=== PATIENT | male | born 1960 | race Caucasian/White ===

== ENCOUNTER → 2018-01-02 | Outpatient (CLI) | payer OTHER, BC ==
--- NOTE | 2018-01-02 13:51 | EXE ---
[place] [address] STRESS ECHOCARDIOGRAM Name: MARCYPENNY Ashley Room: [facility]#: [id number] Admission: 01/02/18 Attend Phys: Eric Muir, Discharge: Date of : 58 Date of Service: 01/02/18 1351 Report #: [id number] THIS REPORT FOR: //name// APPROVED REPORT Exam: Stress Echocardiogram Indication: Abnormal EKG Patient Location: Out-Patient Stress Nurse: Whit Dickerson RN Supervising Physician: Bernardo Chavira MD Status: routine Ht: 5 ft 8 in HR: 64 bpm BP: 143/93 mmHg Medical History Cardiac Risk Factors: FHX of CAD, Hyperlipidemia Procedure The patient underwent an Exercise Stress Test using the Dhruv Protocol. Blood pressure, heart rate, and EKG were monitored. An Echocardiogram was performed by radio/tv technician in four stages in quad fashion. At peak stress, four selected images were obtained and placed side by side with resting images for comparison. Stress Test Details Stress Test: Exercise stress testing was performed using a Dhruv protocol. HR Resting HR: 64 bpm Max Heart Rate (APMHR): 162 bpm Max HR Achieved: 164 bpm Target HR (85% APMHR): 137 bpm % of APMHR: 101 Recovery HR: 90 bpm HR response to stress: Normal HR response to stress BP Resting BP: 143/93 mmHg Max BP: 195/98 mmHg Recovery BP: 143/92 mmHg ECG Clinical Reason for Termination: Completed protocol, Maximal effort Exercise duration: 10 min 29 [place] [address] STRESS ECHOCARDIOGRAM Name: PENNY VIDAL Room: [facility]#: [id number] Admission: 01/02/18 Attend Phys: Eric Muir, Discharge: Date of : 58 Date of Service: 01/02/18 1351 Report #: [id number] Highest Stage Achieved: Stage 4: 4.2 mph at 16% grade. Exercise capacity: 12.58 METs Pre-Stress Echo The resting Echocardiogram showed normal left ventricular contractility with an estimated Ejection Fraction of about 55-60%. Normal wall motion in all segments on baseline images. Post-Stress Echo The stress Echocardiogram showed normal left ventricular contractility with an estimated Ejection Fraction of about >70%. Normal augmentation of wall motion in all segments on post stress images. Clinical Normal augmentation of myocardial wall segments using a 17 segment model. No clinical or ECG evidence for ischemia. Conclusion Clinical Response: Non-ischemic Exercise Capacity: Superior Stress ECG Response: Non-ischemic Stress Echo Images: Non-ischemic The left ventricle is normal in size and wall thickness in both the rest and stress images. Other Information Study Quality: Good <Conclusion> The left ventricle is normal in size and wall thickness in both the rest and stress images. <ELECTRONICALLY SIGNED> By: Bernardo Chavira MD, FACC 01/02/18 1351 135 135 Bernardo Chavira MD, FACC /INF
== END ==
LOC: M.CRD 10:52
DX: R94.31 Abnormal electrocardiogram [ECG] [EKG] (principal)

== ENCOUNTER → 2020-06-03 | Outpatient (CLI) | payer OTHER ==
--- NOTE | 2020-06-03 16:13 | CARDNUC ---
[place] [address] CARDIAC NUCLEAR IMAGING REPORT Name: MARCYPENNY Ashley Room: [facility]#: [id number] Admission: 06/03/20 Attend Phys: Eric Muir, Discharge: Date of : 58 Date of Service: 06/03/20 1612 Report #: [id number] THIS REPORT FOR: cc: FAM - No family physician/PCP FAM - No family physician/PCP Eric Muir MD [facility] ~ APPROVED REPORT Study performed: 06/03/2020 14:42:45 Exam: Nuclear Stress Test Indication: Chest pain, ABN EKG, increased calcium score. Patient Location: Out-Patient Stress Tech: Nikole Lange Stress Nurse: Radha Layton R.N. Ht: 5 ft 7 in Wt: 185 lbs BSA: 1.96 m2 BMI: 28.97 Medical History Medical History: Angina, ABN EKG, increased calcium score, RBBB, polyneuropathy, CAD non obstructive, Hyperlipidemia, family HX of CAD. Medications: ASA 81 Mg, Atorvastatin. Allergies: No known drug allergies Cardiac Risk Factors: Age, FHX of CAD, Hyperlipidemia, HTN, RBBB, increased calcium score. Previous Cardiac Procedures: None Pretest Chest Pain Characteristics: No chest pain Exercise History: Physically active Physical Disabilities: None Meds Held (24 hrs): None Stress Test Details Stress Test: Exercise stress testing was performed using a Dhruv protocol. HR Resting HR: 62 bpm Max Heart Rate (APMHR): 159 bpm Max HR Achieved: 164 bpm Target HR (85% APMHR): 135 bpm % of APMHR: 103 Recovery HR: 95 bpm BP Resting BP: 136/103 [place] [address] CARDIAC NUCLEAR IMAGING REPORT Name: MARCYPENNY Ashley Room: [facility]#: [id number] Admission: 06/03/20 Attend Phys: Eric Muir, Discharge: Date of : 58 Date of Service: 06/03/20 1612 Report #: [id number] Max BP: 204/96 mmHg ECG Resting ECG: Sinus Rhythm, RBBB Stress ECG: Sinus tachycardia, RBBB ST Change: None Arrhythmia: None Recovery ECG: Sinus Rhythm, RBBB Recovery ST Change: None Recovery Arrhythmia: None Clinical Reason for Termination: Maximal effort, Patient Request, Completed protocol Stress Symptoms: Dyspnea, Lightheadedness. Exercise duration: 10 min 06 sec Exercise capacity: 11.95 METs Overall Exercise Capacity for Age: Superior The patient exhibited good exercise tolerance on the standard Dhruv protocol. Nurse Comments A 60 year old male presented for a Dhruv Protocol Nuclear Stress Test r/t chest pain, ABN EKG and an increased calcium score. HTN was exhibited pre test and continued throughout test. Treadmill tolerated to stage 4. Recovery unremarkable. Patient was escorted by staff to Nuclear Medicine for imaging. Patient was stable and stated he felt good at that time. Exercise capacity - Superior. Stress ECG Conclusion Baseline twelve-lead EKG shows sinus rhythm without significant ST segment abnormality. EKGs obtained during and post exercise show sinus rhythm and sinus tachycardia with no significant ST segment changes when compared to baseline. There were no stress-induced arrhythmias. NM EXAM: Myocardial Perfusion REST/STRESS Imaging Protocol: Rest Tc-99m/Stress Tc-99m 1 day Resting Data Rest SPECT myocardial perfusion imaging was performed in supine position 30 minutes following the intravenous injection of 11.0 mCi of Tc-99m Sestamibi. Time of rest injection: 13:05 The images were gated to evaluate regional wall motion and calculate left [place] [address] CARDIAC NUCLEAR IMAGING REPORT Name: PENNY VIDAL Room: [facility]#: [id number] Admission: 06/03/20 Attend Phys: Eric Muir, Discharge: Date of : 58 Date of Service: 06/03/20 1612 Report #: [id number] Administration Route: IV Administration Site: Right Hand Exercise Stress At peak stress, the patient was injected intravenously with 34.8mCi of Tc-99m Sestamibi. Time of stress injection: 14:45 Administration Route: IV Administration Site: Right Hand Heart Rate at time of stress injection: 164 bpm. Gated Stress SPECT was performed 30 minutes after stress injection. The images were gated to evaluate regional wall motion and calculate left ventricular ejection fraction. Prone imaging was performed. Study Quality Study: Good Artifact: Mild Diaphragmatic artifact Study Data At rest, the left ventricular ejection fraction was 61%.. Post stress, the left ventricular ejection was 61%.. TID = 0.92. Perfusion Perfusion studies obtained in the supine position at rest and post stress show photopenia of the inferior wall that resolves completely with post-rest prone imaging suggesting diaphragmatic attenuation artifact. No other significant fixed or reversible defects are identified. Wall Motion Normal left ventricular wall motion. Nuclear Conclusion ECG Findings: negative for ischemia Clinical Findings: negative for ischemia Nuclear Findings: negative for ischemia Exercise Capacity: normal Left Ventricular Function: normal Risk Study: low Perfusion images show no defect to suggest infarct or ischemia. Left ventricular systolic function appears normal on gated studies. This [place] [address] CARDIAC NUCLEAR IMAGING REPORT Name: MARCYPENNY Ashley Room: [facility]#: [id number] Admission: 06/03/20 Attend Phys: Eric Muir, Discharge: Date of : 58 Date of Service: 06/03/20 1612 Report #: [id number] <Conclusion> Baseline twelve-lead EKG shows sinus rhythm without significant ST segment abnormality. EKGs obtained during and post exercise show sinus rhythm and sinus tachycardia with no significant ST segment changes when compared to baseline. There were no stress-induced arrhythmias. <ELECTRONICALLY SIGNED> By: Eric Muir MD, FACC 06/03/201611 11 11 Eric Muir MD, FACC /INF
== END ==
LOC: M.NUC 04-21 09:35 → M.CRD 05-20 08:00 → M.NUC 05-20 08:00
PROVIDERS: ATTEND Internal Medicine Cardiovascular Disease
DX: I25.10 Atherosclerotic heart disease of native coronary artery without angina pectoris (principal)